=== PATIENT | male | born 1970 | race Caucasian/White ===

== ENCOUNTER → 2017-04-15 | Day surgery (SDC) | payer OTHER ==
[~2017-04-15] VITALS: Ht 190.5 cm; Wt 83.9 kg
[~2017-04-15] MED LIST: CETI10CA PO; CETI5TAB28 PO; ESOM40CA41 PO; HYDR-4003 PO; Lactated Ringer's 1,000 ML IV ONE; ONDA4TAB9 PO; OXYC-530 PO; Propofol 10,000 mCg/mL 20 mL Inj ONE
[2017-04-15 16:09] VITALS: BP 107/67; PULSE 71; RESP 14; O2SAT 97
[2017-04-15 17:22] VITALS: BP 114/73; PULSE 88; O2SAT 100
[2017-04-15 17:28] VITALS: BP 117/73; PULSE 75; O2SAT 100
--- NOTE | 2017-04-15 19:19 | PCM.HPANE ---
Patient Data Surgeon Admitting Provider: Attending Provider:Collin Barraza MD Primary Care Physician:Esmer Bowser MD Other Provider:Tyrel Watson Anesthesia Reason for Visit Malignant Neoplasm Of Esophagus Ht/WT & BMI Body Mass Index Allergies Coded Allergies: Penicillins (Verified Allergy, Intermediate, CAUSES HIS TROAT TO CLOSE, ) Past Anesthesia History Anesthesia History: Denies:: Abnormal Airway, Anesthesia Reactions, Difficult Intubation, Fam Anesthesia Reaction, Fam Malignant Hypertherm, Malignant Hyperthermia Diabetes History Hx Diabetes?: No MRSA MRSA: No Medications Reported Medications Cetirizine HCl (Zyrtec)10 Mg Fdbcxtr51 Mg PO HS #30 CAPSULE Ref 0 04/15/17 Cetirizine 5 Mg Tablet5 Mg PO HS Ref 0 04/15/17 oxyCODONE 5 Mg Tablet5-10 Mg PO q6hrs PRN For Pain Ref 0 01/24/17 Esomeprazole Magnesium (Nexium)40 Mg Capsule.dr40 Mg PO BID Ref 0 01/17/17 Hydrocodone-Acetaminophen 5-325 mg 1 Each Tablet1 Tablet PO Q4H PRN For Pain Ref 0 12/27/16 Ondansetron ODT (Zofran ODT)4 Mg Tablet4 Mg PO Q4H PRN For Nausea 12/10/16 History History of ENT Problems?: No HEENT History: Denies:: Abnormal Airway Cataracts Difficult Intubation Dysphagia Glaucoma Hearing Problem Sinus Problem TMJ Denture Type: None Teeth Condition: Within Normal Limits Hx of Heart Problems?: No Cardiovascular History: Denies:: Chest Pain Heart Murmur Hypertension Pacemaker Rheumatic Fever Thrombophlebitis Hx of Respiratory Problem?: No Respiratory History: Denies:: Asthma COPD Dyspnea Emphysema Hemoptysis Tuberculosis Hx Neurologic Problems?: No Neurological History: Denies:: Alzheimer's Disease CVA Dementia Dizziness Headaches Seizures Hx of GI Problems?: Yes Hx of Problems?: No Genitourinary History: Denies:: HX of Hemodialysis Kidney Stones Urinary Tract Infection HX of Peritoneal Dialysis: No Male Hx: Denies:: Prostate Problems Skin History: Denies:: History Skin Disorders? Pressure Ulcers Hx Musculoskeletal Problems?: No Musculoskeletal History: Denies:: Back Injury Joint Replacement Musculoskeletal Trauma Hx of Psycho/Social Problems?: No Psycho Social History: Positive for:: Hx Depression Denies:: Anxiety Bipolar Disorder Hx Surgeries?: Yes (LEFT SIDED INGUINAL REPAIR 1997) Hx Any Other Health Problems?: Yes Other History: Positive for:: Cancer Hospitalization Denies:: Endocrine Disease Thyroid Disease History Blood Transfusions: Denies:: Blood Transfusions Hx Diabetes: No Hx Alcohol Use: NoHx Substance Use: No Smoking Status: Current Every Day Smoker Have You Smoked inLast 12 mo: Yes Stop/Bang Risk Assessment Category Category 1A: Patient has history of documented sleep apnea, and HAS NOT received any narcotic, sedative or anesthesia administration during this stay. Category 1B: Patient has history of documented sleep apnea, and HAS received any narcotic , sedative or anesthesia administration during this stay Category 2: Patient has SUSPECTED Obstructive Sleep Apnea, and HAS received any narcotic , sedative or anesthesia administration during this stay. Category 3: Patient has SUSPECTED Obstructive Sleep Apnea and HAS NOT received narcotic, sedative or anesthesia administration during this stay. Category 4: Outpatient in Procedural Areas with known sleep apnea or who screen positive for High Risk via the STOP/BANG questionnaire. Exam Exam General Appearance: Alert, Oriented X3, Cooperative, No Acute Distress HEENT/AIRWAY: MP 2 Lungs: Clear to Auscultation, Normal Air Movement Heart: Exam Unremarkable, Regular Rate/Rhythm, No Murmurs/Rubs/Gallops Plan Impression Patient chart reviewed, patient interviewed and anesthestic plan with risks, benefits, and alternatives discussed, and informed consent obtained. NPO per Anesth. Guidelines: Yes ASA Physical Status: ASA3 Severe Disease (esophageal cancer) Anesthetic Plan: MAC Bene/Risks/Altern/Consents: Yes HP Complete Prior to Induction: Yes Farhad Loo MD Apr 15, 2017 15:59
--- NOTE | 2017-04-15 19:20 | PCM.ANEP1 ---
Post Anesthesia PACU Phase 1 Assessment Vital Signs Vital Signs Date Time Temp Pulse Resp B/P Pulse Ox O2 Delivery O2 Flow Rate FiO2 04/15/17 17:28 75 117/73 100 Room Air 04/15/17 17:22 88 114/73 100 Nasal Cannula 3 04/15/17 16:09 71 14 107/67 97 Room Air Anesthetic Administered: MAC Level of Alertness: Awake, talking JACOME's with Equal Strength: Yes Pain: No Nausea or Vomiting: No CV Function & Hydration Stable: Yes Airway Device: Oxygen Delivery: Room Air Lungs: Clear to Auscultation, Normal Air Movement Dermatome Level: Full Sensation PACU Phase 2 Assessment Complications: No Follow up Care: N/A Patient Instructions Provided: N/A Farhad Loo MD Apr 15, 2017 19:20
--- NOTE | 2017-04-15 19:55 | ENDO ---
[address] [address] ENDOSCOPY PROCEDURE PATIENT: SHEILA ECKERT : 1970 MR#: [id number] ADMIT: 04/15/2017 JOB ID: [id number] PROCEDURE: Esophagogastroduodenoscopy. 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 The patient's ASA classification, Mallampati score, and medications as per Dr. Farhad Loo's anesthesia report. INSTRUMENT USED: [id number]. PROCEDURE DETAILS: After informed consent was obtained, the patient was brought into the GI suite, where he was placed on oxygen via nasal cannula and monitored with continuous pulse oximeter, telemetry, and blood pressure monitoring. A time-out was performed. Then, he was placed in a left lateral decubitus position and medications were administered for sedation. A bite block was placed. The standard EGD scope was inserted through the bite block and advanced without difficulty to the second portion of the duodenum. FINDINGS: 1. Normal-appearing duodenal bulb, first and second portion. 2. Normal-appearing pylorus, antrum, and gastric body. 3. Retroflexed views in the gastric body revealed ulceration in the cardia. This ulceration extended to the GE junction and proximally up to 42 cm. In the esophagus, the GE junction was at approximately 45 cm. There was circumferential ulceration extending proximally to 42 cm. Multiple biopsies were obtained. The remainder of the esophagus appeared otherwise unremarkable. No resistance was encountered with passage of the scope through the esophagus. 4. Ulcerative esophagitis extending to the cardia RECOMMENDATIONS: 1. Await biopsy results. 2. Follow up in Oncology Clinic. 3. Continue PPI. COMPLICATIONS: None. ESTIMATED BLOOD LOSS: Less than 5 mL.
== END | disposition home or self-care (01) ==
LOC: END 00:46
PROVIDERS: ATTEND Internal Medicine Gastroenterology
DX: C15.5 Malignant neoplasm of lower third of esophagus (principal); K22.10 Ulcer of esophagus without bleeding; Z92.21 Personal history of antineoplastic chemotherapy; Z92.3 Personal history of irradiation; F41.9 Anxiety disorder, unspecified; F32.9 Major depressive disorder, single episode, unspecified